=== PATIENT | male | born 2000 | race Caucasian/White ===

== ENCOUNTER 2022-10-19 18:16 | Emergency (ER) | payer BC, OTHER ==
[2022-10-19] MEDS ORDERED: DIPHTH,PERTUSS(ACELL),TET 0.5 ML DISP.SYRIN IM ONE ×2 (18:44→18:52)
[2022-10-19 18:55] VITALS: BP 128/71; PULSE 77; RESP 20; TEMP 98.2; BMI 28.1
[2022-10-19] MEDS ORDERED: CEPHALEXIN MONOHYDRATE 500 MG CAPSULE (UD) PO ONE (19:09)
== END 2022-10-19 19:18 | disposition home or self-care (01) ==
LOC: FER 18:16
PROC: 0HQFXZZ Repair Right Hand Skin, External Approach (ICD-10-PCS; principal; 2022-10-19)
DX: S61.212A Laceration without foreign body of right middle finger without damage to nail, initial encounter (principal); W26.8XXA Contact with other sharp object(s), not elsewhere classified, initial encounter
CPT/HCPCS: 90715; 99283-25

== ENCOUNTER 2022-10-26 12:02 | Emergency (ER) | payer OTHER ==
[2022-10-26 12:19] VITALS: BP 145/77; PULSE 77; RESP 20; TEMP 98.3; BMI 28.3
== END 2022-10-26 13:07 | disposition home or self-care (01) ==
LOC: FER 12:02
DX: Z48.02 Encounter for removal of sutures (principal); S61.202D Unspecified open wound of right middle finger without damage to nail, subsequent encounter; W26.8XXD Contact with other sharp object(s), not elsewhere classified, subsequent encounter
CPT/HCPCS: 99282-25